=== PATIENT | male | born 1985 | race Caucasian/White ===

== ENCOUNTER 2025-03-03 12:25 | Emergency (ER) | payer MEDICAID, SELFPAY ==
--- NOTE | 2025-03-03 13:40 | XR_ITS ---
Examination: Left elbow 3 views Technique: Elbow AP, oblique, lateral 3 views Exam date and time: March 03, 2025, 1341 hours INDICATIONS: Patient fell today with injury to the elbow, elbow pain. FINDINGS: Large elbow effusion No definite acute fracture No dislocation IMPRESSION: No definite acute fracture Given the large elbow effusion, recommend short-term follow-up elbow films as clinical warranted.
[2025-03-03 13:44] VITALS: BP 162/95; PULSE 73; RESP 16; TEMP 37.2; O2SAT 99; BMI 19.2
--- NOTE | 2025-03-03 15:02 | PC.NURSE ---
no answer in lobby
--- NOTE | 2025-03-03 16:01 | PC.NURSE ---
no answer in lobby
--- NOTE | 2025-03-03 16:29 | PC.NURSE ---
no answer in lobby x 3
--- NOTE | 2025-03-03 17:51 | EDNOTE_ITS ---
Upper Extremity Injury RME/HPI General Chief Complaint: Extremity Injury, Upper Stated Complaint: left elbow pain s/p fall yest. Time Seen by Provider: 03/03/25 13:11 Arrival date/time: 03/03/25 12:25 39-year-old male presents to the emergency department today stating a trip and fall yesterday patient reports pain to the left elbow patient reports pain is worse with movement Limitations: no limitations Related Data Allergies Allergy/AdvReac Type Severity Reaction Status Date / Time No Known Allergies Allergy Verified 03/03/25 12:28 Review of Systems Review of Systems Systems Reviewed: All systems reviewed, normal except as documented Constitutional Constitutional: Reports system reviewed and no additional complaints, except as documented, Denies fever(s) and Denies headache(s) Eyes Eyes: Reports system reviewed and no additional complaints, except as documented and Denies blurry vision ENT Ears, Nose, Mouth, and Throat: Reports system reviewed and no additional complaints, except as documented, Denies headache(s), Denies nasal congestion and Denies nasal discharge Cardiovascular Cardiovascular: Reports system reviewed and no additional complaints, except as documented, Denies chest pain and Denies dyspnea Respiratory Respiratory: Reports system reviewed and no additional complaints, except as documented, Denies chest congestion, Denies cough and Denies dyspnea Gastrointestinal Gastrointestinal: Reports system reviewed and no additional complaints, except as documented and Denies abdominal pain Musculoskeletal Musculoskeletal: Reports system reviewed and no additional complaints, except as documented, Reports arthralgias and Reports joint swelling Integumentary/Breasts Skin/Breast: Reports system reviewed and no additional complaints, except as documented and Denies rash Neurologic Neurologic: Reports system reviewed and no additional complaints, except as documented, Reports as per HPI and Denies headache(s) Past Medical History Social History SMOKING STATUS: Current every day smoker ED Exam General Limitations: Present no limitations General appearance: Present alert and in no apparent distress Head Head exam: Present atraumatic, normocephalic and normal inspection Eye Eye exam: Present normal appearance, PERRL and EOMI; Absent conjunctival injection ENT ENT exam: Present normal exam, normal oropharynx and mucous membranes moist Neck Neck exam: Present normal inspection, full ROM and trachea midline Chest Chest inspection: Present normal inspection and symmetric chest wall rise Respiratory Respiratory exam: Present normal lung sounds bilaterally Cardiovascular Cardiovascular exam: Present regular rate, normal rhythm and normal heart sounds Abdominal Exam Abdominal exam: Present soft and normal bowel sounds Extremities Exam Extremities exam: Present full ROM, tenderness, normal capillary refill and joint swelling Back Exam Back exam: Present normal inspection and full ROM Neurological Exam Neurological exam: Present alert, oriented X3 and CN II-XII intact Psychiatric Psychiatric exam: Present normal affect and normal mood Skin Skin exam: Present warm, dry, intact and normal color Course Quality Measures none Orders Category Date Time Status CT elbow LT wo con Stat Exams 03/03/25 13:59 Ordered XR elbow comp LT min 3V Stat Exams 03/03/25 13:40 Completed Vital Signs Vital signs: Vital Signs Temperature 99.0 F 03/03/25 13:44 Pulse Rate 73 03/03/25 13:44 Respiratory Rate 16 03/03/25 13:44 Blood Pressure 162/95 H 03/03/25 13:44 Pulse Oximetry (%) 99 03/03/25 13:44 Oxygen Delivery Method Room Air 03/03/25 13:44 O2 saturation 9 9% room air within the limits Extremity Injury MDM Narrative MDM Narrative:: 39-year-old male presents to the emergency department today stating a trip and fall yesterday patient reports pain to the left elbow patient reports pain is worse with movement X-ray of the left elbow obtained no definite fracture noted CT scan ordered patient left prior to CT scan obtained Patient eloped prior to final disposition Patient data External records reviewed:: [facility] previous records Clinical information provided by:: patient Social determinants that could affect healthcare access:: none Patient has the following chronic illnesses:: None How is presenting disease/condition affected by chronic disease/condition?: no chronic disease Evaluation data The following diagnostics were reviewed and interpreted by me:: radiology exam(s) Lab and/or radiology exams considered but not ordered:: Radiology obtained Interpretation Summary: Reviewed by me Medications / Prescriptions Medications or Prescriptions considered but not ordered:: Given Medication administrations:: Given Consultations Consultation(s) initiated? (list below): No Diagnosis Upper Extremity Injury Differential Diagnosis: other (Elbow sprain, Elbow fracture) Most likely diagnosis given after review of the tests above:: Elbow sprain Admission Indicated Admission indicated?: not indicated Admission Request Was there a request for admission?: No Disposition Plan Disposition Plan: Discharge Discharge Attestation Discharge Attestation: The patient and all family members were given an opportunity to ask questions and understood the discharge instructions. Discharge instructions specifically effects, indications for sooner follow up or return to the emergency department, and the expected course of current diagnosis. Patient condition: Stable Discharge Plan Plan Patient Disposition: Elopement Discharge Disposition comment: stable Problem List Clinical Impression: Left elbow pain Patient/Caregiver Discharge Instructions Education Materials: ED Sprain, Elbow Additional Instructions: Please follow up with your primary care doctor in the next 24-48hrs for any worsening symptoms return here immediately Print Language: Lithuanian PA/RESEARCH GROUP DIRECTOR Supervising Physician PA/RESEARCH GROUP DIRECTOR Supervising Physician: Dr. [email or web address]
== END 2025-03-03 17:19 | disposition left against medical advice (07) ==
LOC: SERX 17:21
PROVIDERS: Emergency Provider Emergency Medicine
DX: S59.902A Unspecified injury of left elbow, initial encounter (principal); W01.0XXA Fall on same level from slipping, tripping and stumbling without subsequent striking against object, initial encounter
CPT/HCPCS: 73080; 99283